=== PATIENT | female | born 1990 | race Caucasian/White ===

== ENCOUNTER 2016-11-01 10:43 | Emergency (ER) | payer BC, MEDICAID, OTHER, SELFPAY ==
[~2016-11-01 10:43] MED LIST: CYCL10TA PO; MOBI15TA PO; NEUR300C PO; ZOLO50TA PO
[2016-11-01 11:28] LABS: MEAN CORPUSCULAR HGB CONC 33.9 g/dl (32.0-36.5); MEAN CORPUSCULAR VOLUME 85.7 fl (80.0-96.0); RED CELL DISTRIBUTION WIDTH 12.7 % (11.5-14.5); WHITE BLOOD COUNT 12.3 K/mm3 (4.0-10.0)
[2016-11-01 11:50] LABS: ALBUMIN 3.2 GM/DL (3.2-5.2); ALBUMIN/GLOBULIN RATIO 0.73 (1.00-1.93); ALKALINE PHOSPHATASE 133 U/L (45-117); ALT/SGPT 22 U/L (12-78); ANION GAP 8 MEQ/L (8-16); AST/SGOT 17 U/L (15-37); BILIRUBIN,TOTAL 0.2 MG/DL (0.2-1.0); BLOOD UREA NITROGEN 13 MG/DL (7-18); CALCIUM LEVEL 8.4 MG/DL (8.5-10.1); CARBON DIOXIDE LEVEL 26 MEQ/L (21-32); CHLORIDE LEVEL 108 MEQ/L (98-107); CREATININE FOR GFR 0.75 MG/DL (0.55-1.02); GLOMERULAR FILTRATION RATE > 60.0 (>60); GLUCOSE, FASTING 91 MG/DL (70-105); POTASSIUM SERUM 3.8 MEQ/L (3.5-5.1); SODIUM LEVEL 142 MEQ/L (136-145); TOTAL PROTEIN 7.6 GM/DL (6.4-8.2)
--- NOTE | 2016-11-01 13:50 | EDDOCDS ---
Nurse's Notes [facility] Name: Marianela Bourgeois Age: 26 yrs Sex: Female : 1990 Arrival Date: 11/01/2016 Time: 10:43 Bed I2 / M2 Private MD: Kelsea Florentino M. Diagnosis: Irregular menstruation, unspecified Presentation: 11/01 10:52 Presenting complaint: Patient states: vaginal bleeding/spotting for over 1 week. Had kr3 regular menses 10/13/16. Reports has Nuvaring and usually does not have vaginal bleeding like this. Reports had vaginal discharge and was started on med for yeast infection 10/29. was not evaluated but treated via phone. Risk factors: The patient reports no loss of conciousness prior to arrival. This patient has not had a hysterectomy. This patient has not begun menopause. Adult Sepsis Screening: The patient does not have new or worsening altered mentation. Patient's respiratory rate is less than 22. Systolic blood pressure is greater than 100. Patient has a qSOFA score of 0- Negative Sepsis Screen. Suicide/Homicide risk assessment- the patient denies having any suicidal and/or homicidal ideations and does not present with any other emotional, behavioral or mental health complaints. Status: Patient is not a printing services coordinator or dependent. Transition of care: patient was not received from another setting of care. 10:52 Acuity: MIKEY Level 3 kr3 10:52 Method Of Arrival: Walkin/Carried/Asstd kr3 Triage Assessment: 10:56 General: Appears in no apparent distress, comfortable, Behavior is appropriate for age, kr3 cooperative. Pain: Denies pain. HIV screening NA for this visit Offered previously. Respiratory: Respiratory effort is even, unlabored. : Reports vaginal bleeding that is spotty. Derm: Skin is normal. 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 Zoloft 50 mg Oral tab 1 tab nightly 2. yeast infection med used vaginally nightly started 10/29/16 - PMHx: Depression; - PSHx: none; - Social history: Smoking status: Patient states was never smoker of tobacco. No barriers to communication noted, The patient speaks fluent Yi, Speaks appropriately for age. - Family history: Not pertinent. - : The pt / caregiver states he / she is not on anticoagulants. Home medication list is obtained from the patient. - Exposure Risk Screening:: None identified. Screenin:27 Screening information is obtained from the patient. Fall risk: No risks identified. srm Assistance ADL's: requires no assistance with activities of daily living. Abuse/DV Screen: The patient / caregiver reports he/she is: not in a situation that causes fear, pain or injury. Nutritional screening: No deficits noted. Advance Directives: There is no active DNR order. home support is adequate. Assessment: 11:27 General: Appears in no apparent distress, Behavior is appropriate for age, cooperative. srm Neurological: No deficits noted. EENT: No deficits noted. Cardiovascular: No deficits noted. Respiratory: Airway is patent Respiratory effort is even, unlabored, Breath sounds are clear bilaterally. GI: Abdomen is non- distended obese, Bowel sounds present X 4 quads. Abd is soft and non tender X 4 quads. : Reports vaginal bleeding that is black in color. 12:21 General: Appears in no apparent distress, comfortable, Behavior is appropriate for age, dsf cooperative. Pain: Denies pain. Neurological: Level of Consciousness is awake, alert. Cardiovascular: No deficits noted. Respiratory: No deficits noted. Derm: Skin is pink, warm & dry. 13:48 Adult Sepsis Screening: The patient does not have new or worsening altered mentation. dsf Patient's respiratory rate is less than 22. Systolic blood pressure is greater than 100. Patient has a qSOFA score of 0- Negative Sepsis Screen. General: Appears in no apparent distress, comfortable, Behavior is appropriate for age, cooperative. Pain: Denies pain. Neurological: Level of Consciousness is awake, alert. Cardiovascular: Capillary refill < 3 seconds. Respiratory: Airway is patent Respiratory effort is even, unlabored, Respiratory pattern is regular, symmetrical. Derm: Skin is pink, warm & dry. Vital Signs: 10:46 BP 133 / 84 RA Sitting (auto/reg); Pulse 100 RA; Resp 18 S; Temp 98.81(O); Pulse Ox 97% mt4 on R/A; Weight 104.33 kg (R); Height 5 ft. 6 in. (167.64 cm) (R); 13:31 BP 119 / 70; Pulse 104; Resp 18; Temp 97.4; Pulse Ox 98% ; Pain 0/10; jam1 10:46 Body Mass Index 37.12 (104.33 kg, 167.64 cm) mt4 Vitals: 10:46 Log In Time: November 01, 2016 at 10:43. mt4 ED Course: 10:45 Patient visited by Veronica Sears. mt4 10:45 Patient moved to Waiting mt4 10:46 Kelsea Florentino is Private Physician. mt4 10:50 Patient moved to Pre RCE mt4 10:54 Triage Initiated kr3 10:57 Patient moved to Triage 3 kr3 10:58 Ingr[facility] ef1 10:58 Ben Pham MD is Attending Physician. ef1 10:58 Patient visited by Ingris Davalos PA-C. ef1 11:16 Patient moved to I2 / M2 jf3 11:19 Patient visited by Judy Quezada. sew 11:19 Urinalysis Sent. sew 11:19 Urine Culture Sent. sew 11:19 Urine collected. Clean catch specimen. Urine specimen sent to lab. sew 11:23 Complete Comphrensive Metabolic Sent. srm 11:24 Patient visited by Judy Quezada. sew 11:24 Patient visited by Tish James, CORNEL. srm 11:24 The patient / caregiver is instructed regarding the plan of care and ED course. Patient srm has correct armband on for positive identification. Placed in gown. Bed in low position. 11:24 Inserted saline lock: 20 gauge in right antecubital area and blood collected. srm 11:24 Complete Blood Count Sent. srm 11:24 Type & Screen Sent. srm 11:28 Patient visited by Tish James, CORNEL. srm 12:04 Patient moved to Ultrasound sm5 12:20 Patient moved to I2 / M2 dsf 12:21 Patient visited by Aziza Lynch,RN. dsf 12:29 Patient has correct armband on for positive identification. Bed in low position. Call jam1 light in reach. Side rails up X 1. Door closed. 12:32 [facility] Payment Agreement was scanned into [employer]LO[employer] and attached to record. jls1 13:02 Patient visited by Ingris Davalos PA-C. ef1 13:39 Patient visited by Ingris Davalos PA-C. ef1 13:41 Patient visited by Ingris Davalos PA-C. ef1 13:43 Your Scarifier Operator is Referral Physician. ef1 13:43 Kelsea Florentino is Referral Physician. ef1 13:48 Discontinued IV lock intact, bleeding controlled, pressure dressing applied, No srm redness/swelling at site. 13:48 No procedures done that require assistance. dsf Administered Medications: 11:27 Drug: NS 0.9% 1000 ml [sodium chloride 0.9 % intravenous solution] Route: IV; Rate: srm bolus; Site: right antecubital; 13:48 Follow up: IV Status: Completed infusion srm Point of Care Testing: Urine : 11:24 hCG Reading: Negative; Control Reading: Positive; sew Ranges: Intake: 13:48 IV: 1000.00ml (NS); Total: 1000.00ml. srm Order Results: Lab Order: Complete Blood Count; SPEC'M 11/01/16 11:21 Test: WHITE BLOOD COUNT; Value: 12.3; Range: 4.0-10.0; Abnormal: Above high normal; Units: K/mm3; Status: F Test: RED BLOOD COUNT; Value: 4.69; Range: 4.00-5.40; Units: M/mm3; Status: F Test: HEMOGLOBIN; Value: 13.6; Range: 12.0-16.0; Units: g/dl; Status: F Test: HEMATOCRIT; Value: 40.2; Range: 36.0-47.0; Units: %; Status: F Test: MEAN CORPUSCULAR VOLUME; Value: 85.7; Range: 80.0-96.0; Units: fl; Status: F Test: MEAN CORPUSCULAR HEMOGLOBIN; Value: 29.0; Range: 27.0-33.0; Units: pg; Status: F Test: MEAN CORPUSCULAR HGB CONC; Value: 33.9; Range: 32.0-36.5; Units: g/dl; Status: F Test: RED CELL DISTRIBUTION WIDTH; Value: 12.7; Range: 11.5-14.5; Units: %; Status: F Test: PLATELET COUNT, AUTOMATED; Value: 223; Range: 150-450; Units: k/mm3; Status: F Lab Order: Type & Screen; SPEC'11/01/16 11:21 Test: BLOOD TYPE; Value: O POS; Status: F Test: AB SCREEN (INDIRECT TERRY)GEL; Value: NEGATIVE; Status: F Lab Order: Urinalysis; SPEC'M 11/01/16 11:16 Test: APPEARANCE, URINE; Value: HAZY; Range: CLEAR; Status: F Test: COLOR, URINE; Value: YELLOW; Range: YELLOW; Status: F Test: PH,URINE; Value: 5.0; Range: 5.0-9.0; Units: UNITS; Status: F Test: SPECIFIC GRAVITY URINE AUTO; Value: 1.032; Range: 1.002-1.035; Status: F Test: PROTEIN, URINE AUTO; Value: 1+; Range: NEGATIVE; Abnormal: Above high normal; Units: mg/dL; Status: F Test: GLUCOSE, URINE (UA) AUTO; Value: NEGATIVE; Range: NEGATIVE; Units: mg/dL; Status: F Test: KETONE, URINE AUTO; Value: TRACE; Range: NEGATIVE; Abnormal: Above high normal; Units: mg/dL; Status: F Test: UROBILINOGEN, URINE AUTO; Value: 0.2; Range: 0.0-2.0; Units: mg/dL; Status: F Test: BILIRUBIN, URINE AUTO; Value: NEGATIVE; Range: NEGATIVE; Status: F Test: NITRITE, URINE AUTO; Value: NEGATIVE; Range: NEGATIVE; Status: F Test: LEUKOCYTE ESTERASE, URINE AUTO; Value: NEGATIVE; Range: NEGATIVE; Status: F Test: BLOOD, URINE BLOOD; Value: 3+; Range: NEGATIVE; Abnormal: Above high normal; Status: F Test: WBC, URINE AUTO; Value: 2; Range: 0-3; Units: /HPF; Status: F Test: RBC, URINE AUTO; Value: 2; Range: 0-3; Units: /HPF; Status: F Test: BACTERIA, URINE AUTO; Value: NEGATIVE; Range: NEGATIVE; Status: F Test: SQUAMOUS EPITHELIAL CELL UR AU; Value: 3; Range: 0-6; Units: /HPF; Status: F Test: MUCUS, URINE; Value: LARGE; Range: NEGATIVE; Status: F Test: HYALINE CAST, URINE AUTO; Value: 0; Range: 0-1; Units: /LPF; Status: F Lab Order: Complete Comphrensive Metabolic; SPEC'M 11/01/16 11:21 Test: GLUCOSE, FASTING; Value: 91; Range: 70-105; Units: MG/DL; Status: F Test: BLOOD UREA NITROGEN; Value: 13; Range: 7-18; Units: MG/DL; Status: F Test: CREATININE FOR GFR; Value: 0.75; Range: 0.55-1.02; Units: MG/DL; Status: F Test: GLOMERULAR FILTRATION RATE; Value: > 60.0; Range: >60; Status: F Test: SODIUM LEVEL; Value: 142; Range: 136-145; Units: MEQ/L; Status: F Test: POTASSIUM SERUM; Value: 3.8; Range: 3.5-5.1; Units: MEQ/L; Status: F Test: CHLORIDE LEVEL; Value: 108; Range: 98-107; Abnormal: Above high normal; Units: MEQ/L; Status: F Test: CARBON DIOXIDE LEVEL; Value: 26; Range: 21-32; Units: MEQ/L; Status: F Test: ANION GAP; Value: 8; Range: 8-16; Units: MEQ/L; Status: F Test: CALCIUM LEVEL; Value: 8.4; Range: 8.5-10.1; Abnormal: Below low normal; Units: MG/DL; Status: F Test: AST/SGOT; Value: 17; Range: 15-37; Units: U/L; Status: F Test: ALT/SGPT; Value: 22; Range: 12-78; Units: U/L; Status: F Test: ALKALINE PHOSPHATASE; Value: 133; Range: 45-117; Abnormal: Above high normal; Units: U/L; Status: F Test: BILIRUBIN,TOTAL; Value: 0.2; Range: 0.2-1.0; Units: MG/DL; Status: F Test: TOTAL PROTEIN; Value: 7.6; Range: 6.4-8.2; Units: GM/DL; Status: F Test: ALBUMIN; Value: 3.2; Range: 3.2-5.2; Units: GM/DL; Status: F Test: ALBUMIN/GLOBULIN RATIO; Value: 0.73; Range: 1.00-1.93; Abnormal: Below low normal; Status: F Test Note: ; Units are mL/min/1.73 m2 Chronic Kidney Disease Staging per NKF: Stage I & II GFR >=60 Normal to Mildly Decreased Stage III GFR 30-59 Moderately Decreased Stage IV GFR 15-29 Severely Decreased Stage V GFR <15 Very Little GFR Left ESRD GFR <15 on MEAT SAL[employer]ORAGE MANAGER Outcome: 13:43 Discharge ordered by Provider. ef1 13:48 Discharge Assessment: Patient awake, alert and oriented x 3. No cognitive and/or dsf functional deficits noted. Patient verbalized understanding of disposition instructions. patient administered narcotics - no. The following High Risk Discharge criteria are identified: None. Discharged to home ambulatory. Condition: stable. Discharge instructions given to patient, Instructed on discharge instructions, follow up and referral plans. medication usage, Demonstrated understanding of instructions, medications, Pt was receptive of discharge instructions/ teaching. Prescriptions given X 2. Ultrasound Study completed. Property sent home with patient. 13:49 Patient left the ED. dsf Signatures: Tish James, RN RN srm Jeanie Gross, HUMBERTO VEIN ACCESS TECHNICIAN jam1 Erin Conroy 5 Ani Mora RN RN kr3 Veronica Sears co4 Ingris Davalos, PA-C PA-C ef1 Aziza LynchRN RN dsf Judy Quezada Jennifer jls1 Yomi White,RN RN jf3 Corrections: (The following items were deleted from the chart) 10:57 10:52 Presenting complaint: Patient states: vaginal bleeding/spotting for over 1 week. kr3 Had regular menses 10/13/16. Reports has Nuvaring and usually does not have vaginal bleeding like this kr3 MTDD
--- NOTE | 2016-11-01 13:50 | EDDOCDS ---
[facility] Name: Marianela Bourgeois Age: 26 yrs Sex: Female : 1990 Arrival Date: 11/01/2016 Time: 10:43 Bed I2 / M2 Private MD: Kelsea Florentino M. Disposition: 11/01/16 13:43 Discharged to Home/Self Care. Impression: Irregular menstruation, unspecified. - Condition is Stable. - Discharge Instructions: Abnormal Uterine Bleeding. - Prescriptions for Naprosyn 500 mg Oral Tablet - take 1 tablet by ORAL route 2 times per day take with food; 30 tablet. ZOFRAN ODT 4 mg - dissolve 1 tablet by ORAL route 4 times per day As needed do not chew, do not swallow whole; 10 tablet. - Medication Reconciliation, Local Pharmacy Hours form. 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 Follow up: Emergency Department; Reason: Worsening of conditions. Follow up: Kelsea Florentino; When: 1 - 2 days; Reason: Recheck today's complaints, Continuance of care. - Problem is new. - Symptoms have improved. Historical: - Allergies: Codeine Sulfate; - Home Meds: 1. Zoloft 50 mg Oral tab 1 tab nightly 2. yeast infection med used vaginally nightly started 10/29/16 - PMHx: Depression; - PSHx: none; - Social history: Smoking status: Patient states was never smoker of tobacco. No barriers to communication noted, The patient speaks fluent [place], Speaks appropriately for age. - Family history: Not pertinent. - : The pt / caregiver states he / she is not on anticoagulants. Home medication list is obtained from the patient. - Exposure Risk Screening:: None identified. RADIOCHEMICAL TECHNICIAN: 11/01 10:56 LMP 10/13/2016 kr3 Vital Signs: 10:46 BP 133 / 84 RA Sitting (auto/reg); Pulse 100 RA; Resp 18 S; Temp 98.81(O); Pulse Ox 97% mt4 on R/A; Weight 104.33 kg / 230.01 lbs (R); Height 5 ft. 6 in. (167.64 cm) (R); 13:31 BP 119 / 70; Pulse 104; Resp 18; Temp 97.4; Pulse Ox 98% ; Pain 0/10; jam1 10:46 Body Mass Index 37.12 (104.33 kg, 167.64 cm) mt4 MDM: 11:05 IV Saline Lock ordered. ef1 11:05 Undress patient appropriately for examination ordered. ef1 11:05 NS 0.9% 1000 ml IV at bolus once ordered. ef1 11:05 UCG by Nursing ordered. ef1 11:06 Complete Blood Count Ordered. EDMS 11:06 Urinalysis Ordered. EDMS 11:06 Complete Comphrensive Metabolic Ordered. EDMS 11:06 Urine Culture Ordered. EDMS 11:06 -US Pelvic Non-Ob Complete Ordered. EDMS 11:06 DUPLEX SCAN LIMITED (DOPPLER)+US Ordered. EDMS 11:07 Type & Screen Ordered. EDMS 12:04 Transvaginal NON- US Ordered. EDMS 12:06 Complete Blood Count Reviewed. ef1 12:06 Urinalysis Reviewed. ef1 12:06 Complete Comphrensive Metabolic Reviewed. ef1 12:06 Type & Screen Reviewed. ef1 12:20 Type & Screen Reviewed. ef1 12:31 Financial registration complete. jls1 12:32 [facility] Payment Agreement was scanned into eegoes and attached to record. [facility] Point of Care Testing: Urine : 11:24 hCG Reading: Negative; Control Reading: Positive; sew Ranges: Administered Medications: 11:27 Drug: NS 0.9% 1000 ml [sodium chloride 0.9 % intravenous solution] Route: IV; Rate: srm bolus; Site: right antecubital; 13:48 Follow up: IV Status: Completed infusion srm Signatures: Dispatcher [employer] EDMS Tish James, RN RN Ani LewisRN RN rossy3 Ingris Davalos, PA-C PA-C ef1 Aziza Lynch,RN RN Susi Campo [facility] The chart was reviewed and I authenticate all verbal orders and agree with the evaluation and treatment provided.Attachments: 12:32 [facility] Payment Agreement jl MTDD
--- NOTE | 2016-11-01 14:00 | REP ---
Pelvic sonography: History: Abnormal vaginal bleeding. Adnexal pain. Question torsion. Findings: Transabdominal and transvaginal scanning are performed. Uterine dimensions are normal at 6.7 x 3.0 x 3.8 cm. Endometrial echo is 0.4 cm thick and centrally placed. A Nabothian cyst is seen in the cervix. No free fluid is seen. The right ovary has a normal appearance measuring 2.1 x 1.4 x 2.0 cm. Its Doppler resistive index is normal at 0.55. The left ovary has a normal appearance with dimensions of 1.6 x 1.5 x 1.8 cm. Its Doppler resistive index is normal as 0.49. Impression: Normal pelvic sonography. Normal Doppler flow to morphologically normal bilateral ovaries. Signed by Shoaib Keenan MD 11/01/2016 02:39 P
--- NOTE | 2016-11-03 14:50 | EDDOCDS ---
Nurse's Notes [facility] Name: Marianela Bourgeois Age: 26 yrs Sex: Female : 1990 Arrival Date: 11/01/2016 Time: 10:43 Bed I2 / M2 Private MD: Kelsea Florentino M. Diagnosis: Irregular menstruation, unspecified Presentation: 11/01 10:52 Presenting complaint: Patient states: vaginal bleeding/spotting for over 1 week. Had kr3 regular menses 10/13/16. Reports has Nuvaring and usually does not have vaginal bleeding like this. Reports had vaginal discharge and was started on med for yeast infection 10/29. was not evaluated but treated via phone. Risk factors: The patient reports no loss of conciousness prior to arrival. This patient has not had a hysterectomy. This patient has not begun menopause. Adult Sepsis Screening: The patient does not have new or worsening altered mentation. Patient's respiratory rate is less than 22. Systolic blood pressure is greater than 100. Patient has a qSOFA score of 0- Negative Sepsis Screen. Suicide/Homicide risk assessment- the patient denies having any suicidal and/or homicidal ideations and does not present with any other emotional, behavioral or mental health complaints. Status: Patient is not a rehab services aide or dependent. Transition of care: patient was not received from another setting of care. 10:52 Acuity: MIKEY Level 3 kr3 10:52 Method Of Arrival: Walkin/Carried/Asstd kr3 Triage Assessment: 10:56 General: Appears in no apparent distress, comfortable, Behavior is appropriate for age, kr3 cooperative. Pain: Denies pain. HIV screening NA for this visit Offered previously. Respiratory: Respiratory effort is even, unlabored. : Reports vaginal bleeding that is spotty. Derm: Skin is normal. MLT: 10:56 LMP 10/13/2016 kr3 Historical: - Allergies: Codeine Sulfate; - Home Meds: 1. Zoloft 50 mg Oral tab 1 tab nightly 2. yeast infection med used vaginally nightly started 10/29/16 - PMHx: Depression; - PSHx: none; - Social history: Smoking status: Patient states was never smoker of tobacco. No barriers to communication noted, The patient speaks fluent Luxembourgish, Speaks appropriately for age. - Family history: Not pertinent. - : The pt / caregiver states he / she is not on anticoagulants. Home medication list is obtained from the patient. - Exposure Risk Screening:: None identified. Screenin:27 Screening information is obtained from the patient. Fall risk: No risks identified. srm Assistance ADL's: requires no assistance with activities of daily living. Abuse/DV Screen: The patient / caregiver reports he/she is: not in a situation that causes fear, pain or injury. Nutritional screening: No deficits noted. Advance Directives: There is no active DNR order. home support is adequate. Assessment: 11:27 General: Appears in no apparent distress, Behavior is appropriate for age, cooperative. srm Neurological: No deficits noted. EENT: No deficits noted. Cardiovascular: No deficits noted. Respiratory: Airway is patent Respiratory effort is even, unlabored, Breath sounds are clear bilaterally. GI: Abdomen is non- distended obese, Bowel sounds present X 4 quads. Abd is soft and non tender X 4 quads. : Reports vaginal bleeding that is black in color. 12:21 General: Appears in no apparent distress, comfortable, Behavior is appropriate for age, dsf cooperative. Pain: Denies pain. Neurological: Level of Consciousness is awake, alert. Cardiovascular: No deficits noted. Respiratory: No deficits noted. Derm: Skin is pink, warm & dry. 13:48 Adult Sepsis Screening: The patient does not have new or worsening altered mentation. dsf Patient's respiratory rate is less than 22. Systolic blood pressure is greater than 100. Patient has a qSOFA score of 0- Negative Sepsis Screen. General: Appears in no apparent distress, comfortable, Behavior is appropriate for age, cooperative. Pain: Denies pain. Neurological: Level of Consciousness is awake, alert. Cardiovascular: Capillary refill < 3 seconds. Respiratory: Airway is patent Respiratory effort is even, unlabored, Respiratory pattern is regular, symmetrical. Derm: Skin is pink, warm & dry. Vital Signs: 10:46 BP 133 / 84 RA Sitting (auto/reg); Pulse 100 RA; Resp 18 S; Temp 98.81(O); Pulse Ox 97% mt4 on R/A; Weight 104.33 kg (R); Height 5 ft. 6 in. (167.64 cm) (R); 13:31 BP 119 / 70; Pulse 104; Resp 18; Temp 97.4; Pulse Ox 98% ; Pain 0/10; jam1 10:46 Body Mass Index 37.12 (104.33 kg, 167.64 cm) mt4 Vitals: 10:46 Log In Time: November 01, 2016 at 10:43. mt4 ED Course: 10:45 Patient visited by Veronica Sears. mt4 10:45 Patient moved to Waiting mt4 10:46 Kelsea Florentino is Private Physician. mt4 10:50 Patient moved to Pre RCE mt4 10:54 Triage Initiated kr3 10:57 Patient moved to Triage 3 kr3 10:58 Ingr[facility]. ef1 10:58 Ben Pham MD is Attending Physician. ef1 10:58 Patient visited by Ingris Davalos PA-C. ef1 11:16 Patient moved to I2 / M2 jf3 11:19 Patient visited by Judy Quezada. sew 11:19 Urinalysis Sent. sew 11:19 Urine Culture Sent. sew 11:19 Urine collected. Clean catch specimen. Urine specimen sent to lab. sew 11:23 Complete Comphrensive Metabolic Sent. srm 11:24 Patient visited by Judy Quezada. sew 11:24 Patient visited by Tish James, CORNEL. srm 11:24 The patient / caregiver is instructed regarding the plan of care and ED course. Patient srm has correct armband on for positive identification. Placed in gown. Bed in low position. 11:24 Inserted saline lock: 20 gauge in right antecubital area and blood collected. srm 11:24 Complete Blood Count Sent. srm 11:24 Type & Screen Sent. srm 11:28 Patient visited by Tish James, CORNEL. srm 12:04 Patient moved to Ultrasound sm5 12:20 Patient moved to I2 / M2 dsf 12:21 Patient visited by Aziza Lynch,RN. dsf 12:29 Patient has correct armband on for positive identification. Bed in low position. Call jam1 light in reach. Side rails up X 1. Door closed. 12:32 [facility] Payment Agreement was scanned into [employer] and attached to record. jls1 13:02 Patient visited by Ingris Davalos PA-C. ef1 13:39 Patient visited by Ingris Davalos PA-C. ef1 13:41 Patient visited by Ingris Davalos PA-C. ef1 13:43 Your Case Liner is Referral Physician. ef1 13:43 Kelsea Florentino is Referral Physician. ef1 13:48 Discontinued IV lock intact, bleeding controlled, pressure dressing applied, No srm redness/swelling at site. 13:48 No procedures done that require assistance. dsf 14:33 T-Sheet-- Draft Copy was scanned into [employer]elt and attached to record. gb 14:33 Radiology Report was scanned into [employer]elt and attached to record. gb 14:34 -US Pelvic Non-Ob Complete Returned. EDMS 14:34 DUPLEX SCAN LIMITED (DOPPLER)+US Returned. EDMS 14:34 Transvaginal NON- US Returned. EDMS Administered Medications: 11:27 Drug: NS 0.9% 1000 ml [sodium chloride 0.9 % intravenous solution] Route: IV; Rate: srm bolus; Site: right antecubital; 13:48 Follow up: IV Status: Completed infusion srm Point of Care Testing: Urine : 11:24 hCG Reading: Negative; Control Reading: Positive; sew Ranges: Intake: 13:48 IV: 1000.00ml (NS); Total: 1000.00ml. srm Order Results: Lab Order: Complete Blood Count; SPEC'M 11/01/16 11:21 Test: WHITE BLOOD COUNT; Value: 12.3; Range: 4.0-10.0; Abnormal: Above high normal; Units: K/mm3; Status: F Test: RED BLOOD COUNT; Value: 4.69; Range: 4.00-5.40; Units: M/mm3; Status: F Test: HEMOGLOBIN; Value: 13.6; Range: 12.0-16.0; Units: g/dl; Status: F Test: HEMATOCRIT; Value: 40.2; Range: 36.0-47.0; Units: %; Status: F Test: MEAN CORPUSCULAR VOLUME; Value: 85.7; Range: 80.0-96.0; Units: fl; Status: F Test: MEAN CORPUSCULAR HEMOGLOBIN; Value: 29.0; Range: 27.0-33.0; Units: pg; Status: F Test: MEAN CORPUSCULAR HGB CONC; Value: 33.9; Range: 32.0-36.5; Units: g/dl; Status: F Test: RED CELL DISTRIBUTION WIDTH; Value: 12.7; Range: 11.5-14.5; Units: %; Status: F Test: PLATELET COUNT, AUTOMATED; Value: 223; Range: 150-450; Units: k/mm3; Status: F Lab Order: Type & Screen; [facility] 11/01/16 11:21 Test: BLOOD TYPE; Value: O POS; Status: F Test: AB SCREEN (INDIRECT TERRY)GEL; Value: NEGATIVE; Status: F Lab Order: Urinalysis; [facility] 11/01/16 11:16 Test: APPEARANCE, URINE; Value: HAZY; Range: CLEAR; Status: F Test: COLOR, URINE; Value: YELLOW; Range: YELLOW; Status: F Test: PH,URINE; Value: 5.0; Range: 5.0-9.0; Units: UNITS; Status: F Test: SPECIFIC GRAVITY URINE AUTO; Value: 1.032; Range: 1.002-1.035; Status: F Test: PROTEIN, URINE AUTO; Value: 1+; Range: NEGATIVE; Abnormal: Above high normal; Units: mg/dL; Status: F Test: GLUCOSE, URINE (UA) AUTO; Value: NEGATIVE; Range: NEGATIVE; Units: mg/dL; Status: F Test: KETONE, URINE AUTO; Value: TRACE; Range: NEGATIVE; Abnormal: Above high normal; Units: mg/dL; Status: F Test: UROBILINOGEN, URINE AUTO; Value: 0.2; Range: 0.0-2.0; Units: mg/dL; Status: F Test: BILIRUBIN, URINE AUTO; Value: NEGATIVE; Range: NEGATIVE; Status: F Test: NITRITE, URINE AUTO; Value: NEGATIVE; Range: NEGATIVE; Status: F Test: LEUKOCYTE ESTERASE, URINE AUTO; Value: NEGATIVE; Range: NEGATIVE; Status: F Test: BLOOD, URINE BLOOD; Value: 3+; Range: NEGATIVE; Abnormal: Above high normal; Status: F Test: WBC, URINE AUTO; Value: 2; Range: 0-3; Units: /HPF; Status: F Test: RBC, URINE AUTO; Value: 2; Range: 0-3; Units: /HPF; Status: F Test: BACTERIA, URINE AUTO; Value: NEGATIVE; Range: NEGATIVE; Status: F Test: SQUAMOUS EPITHELIAL CELL UR AU; Value: 3; Range: 0-6; Units: /HPF; Status: F Test: MUCUS, URINE; Value: LARGE; Range: NEGATIVE; Status: F Test: HYALINE CAST, URINE AUTO; Value: 0; Range: 0-1; Units: /LPF; Status: F Lab Order: Urine Culture; SPEC'M 11/01/16 11:16 Test: URINE CULTURE; Value: URINE CULTURE RESULT NO GROWTH; Status: F Lab Order: Complete Comphrensive Metabolic; SPEC'M 11/01/16 11:21 Test: GLUCOSE, FASTING; Value: 91; Range: 70-105; Units: MG/DL; Status: F Test: BLOOD UREA NITROGEN; Value: 13; Range: 7-18; Units: MG/DL; Status: F Test: CREATININE FOR GFR; Value: 0.75; Range: 0.55-1.02; Units: MG/DL; Status: F Test: GLOMERULAR FILTRATION RATE; Value: > 60.0; Range: >60; Status: F Test: SODIUM LEVEL; Value: 142; Range: 136-145; Units: MEQ/L; Status: F Test: POTASSIUM SERUM; Value: 3.8; Range: 3.5-5.1; Units: MEQ/L; Status: F Test: CHLORIDE LEVEL; Value: 108; Range: 98-107; Abnormal: Above high normal; Units: MEQ/L; Status: F Test: CARBON DIOXIDE LEVEL; Value: 26; Range: 21-32; Units: MEQ/L; Status: F Test: ANION GAP; Value: 8; Range: 8-16; Units: MEQ/L; Status: F Test: CALCIUM LEVEL; Value: 8.4; Range: 8.5-10.1; Abnormal: Below low normal; Units: MG/DL; Status: F Test: AST/SGOT; Value: 17; Range: 15-37; Units: U/L; Status: F Test: ALT/SGPT; Value: 22; Range: 12-78; Units: U/L; Status: F Test: ALKALINE PHOSPHATASE; Value: 133; Range: 45-117; Abnormal: Above high normal; Units: U/L; Status: F Test: BILIRUBIN,TOTAL; Value: 0.2; Range: 0.2-1.0; Units: MG/DL; Status: F Test: TOTAL PROTEIN; Value: 7.6; Range: 6.4-8.2; Units: GM/DL; Status: F Test: ALBUMIN; Value: 3.2; Range: 3.2-5.2; Units: GM/DL; Status: F Test: ALBUMIN/GLOBULIN RATIO; Value: 0.73; Range: 1.00-1.93; Abnormal: Below low normal; Status: F Test Note: ; Units are mL/min/1.73 m2 Chronic Kidney Disease Staging per NKF: Stage I & II GFR >=60 Normal to Mildly Decreased Stage III GFR 30-59 Moderately Decreased Stage IV GFR 15-29 Severely Decreased Stage V GFR <15 Very Little GFR Left ESRD GFR <15 on PROJECT ENGINEER Radiology Order: -US Pelvic Non-Ob Complete Test: -US Pelvic Non-Ob Complete REASON FOR EXAMINATION: Adnexal Pain r/o Torsion; Pelvic sonography:; ; History: Abnormal vaginal bleeding. Adnexal pain. Question torsion.; ; Findings: Transabdominal and transvaginal scanning are performed. Uterine; dimensions are normal at 6.7 x 3.0 x 3.8 cm. Endometrial echo is 0.4 cm thick; and centrally placed. A Nabothian cyst is seen in the cervix. No free fluid is; seen.; ; The right ovary has a normal appearance measuring 2.1 x 1.4 x 2.0 cm. Its; Doppler resistive index is normal at 0.55. The left ovary has a normal; appearance with dimensions of 1.6 x 1.5 x 1.8 cm. Its Doppler resistive index is; normal as 0.49.; ; Impression:; ; Normal pelvic sonography. Normal Doppler flow to morphologically normal; bilateral ovaries.; ; ; Signed by; Shoaib Keenan MD 11/01/2016 02:39 P; Radiology Order: DUPLEX SCAN LIMITED (DOPPLER)+US Test: DUPLEX SCAN LIMITED (DOPPLER)+US REASON FOR EXAMINATION: Adnexal Pain r/o Torsion; Pelvic sonography:; ; History: Abnormal vaginal bleeding. Adnexal pain. Question torsion.; ; Findings: Transabdominal and transvaginal scanning are performed. Uterine; dimensions are normal at 6.7 x 3.0 x 3.8 cm. Endometrial echo is 0.4 cm thick; and centrally placed. A Nabothian cyst is seen in the cervix. No free fluid is; seen.; ; The right ovary has a normal appearance measuring 2.1 x 1.4 x 2.0 cm. Its; Doppler resistive index is normal at 0.55. The left ovary has a normal; appearance with dimensions of 1.6 x 1.5 x 1.8 cm. Its Doppler resistive index is; normal as 0.49.; ; Impression:; ; Normal pelvic sonography. Normal Doppler flow to morphologically normal; bilateral ovaries.; ; ; Signed by; Shoaib Keenan MD 11/01/2016 02:39 P; Radiology Order: Transvaginal NON- US Test: Transvaginal NON- US REASON FOR EXAMINATION: EVAL UTERUS AND OVARIES; Pelvic sonography:; ; History: Abnormal vaginal bleeding. Adnexal pain. Question torsion.; ; Findings: Transabdominal and transvaginal scanning are performed. Uterine; dimensions are normal at 6.7 x 3.0 x 3.8 cm. Endometrial echo is 0.4 cm thick; and centrally placed. A Nabothian cyst is seen in the cervix. No free fluid is; seen.; ; The right ovary has a normal appearance measuring 2.1 x 1.4 x 2.0 cm. Its; Doppler resistive index is normal at 0.55. The left ovary has a normal; appearance with dimensions of 1.6 x 1.5 x 1.8 cm. Its Doppler resistive index is; normal as 0.49.; ; Impression:; ; Normal pelvic sonography. Normal Doppler flow to morphologically normal; bilateral ovaries.; ; ; Signed by; Shoaib Keenan MD 11/01/2016 02:39 P; Outcome: 13:43 Discharge ordered by Provider. ef1 13:48 Discharge Assessment: Patient awake, alert and oriented x 3. No cognitive and/or dsf functional deficits noted. Patient verbalized understanding of disposition instructions. patient administered narcotics - no. The following High Risk Discharge criteria are identified: None. Discharged to home ambulatory. Condition: stable. Discharge instructions given to patient, Instructed on discharge instructions, follow up and referral plans. medication usage, Demonstrated understanding of instructions, medications, Pt was receptive of discharge instructions/ teaching. Prescriptions given X 2. Ultrasound Study completed. Property sent home with patient. 13:49 Patient left the ED. dsf Signatures: Dispatcher [facility] EDIN Tish James RN RN Jeanie Hopper, PRIMING MIXTURE CARRIER PRIMING MIXTURE CARRIER jam1 Nubia Mendez, Reg Reg gb Marycarmen, Erin sm5 Ani Mora,RN RN kr3 Veronica Sears mt4 Ingris Davalos PA-C PAShannan ef1 Aziza Lynch,RN RN dsf Damien, Judy Dougherty, Susi jls1 Yomi White,RN RN jf3 Corrections: (The following items were deleted from the chart) 10:57 10:52 Presenting complaint: Patient states: vaginal bleeding/spotting for over 1 week. kr3 Had regular menses 10/13/16. Reports has Nuvaring and usually does not have vaginal bleeding like this kr3 Chart Complete MTDD
--- NOTE | 2016-11-03 14:50 | EDDOCDS ---
Physician Documentation [facility] Name: Marianela Bourgeois Age: 26 yrs Sex: Female : 1990 Arrival Date: 11/01/2016 Time: 10:43 Bed I2 / M2 Private MD: Kelsea Florentino M. Disposition: 11/01/16 13:43 Discharged to Home/Self Care. Impression: Irregular menstruation, unspecified. - Condition is Stable. - Discharge Instructions: Abnormal Uterine Bleeding. - Prescriptions for Naprosyn 500 mg Oral Tablet - take 1 tablet by ORAL route 2 times per day take with food; 30 tablet. ZOFRAN ODT 4 mg - dissolve 1 tablet by ORAL route 4 times per day As needed do not chew, do not swallow whole; 10 tablet. - Medication Reconciliation, Local Pharmacy Hours form. - Follow up: Your Lining Maker; When: Call to arrange an appointment; Reason: Further diagnostic work-up, Recheck today's complaints, Continuance of care. Follow up: Emergency Department; Reason: Worsening of conditions. Follow up: Kelsea Florentino; When: 1 - 2 days; Reason: Recheck today's complaints, Continuance of care. - Problem is new. - Symptoms have improved. Historical: - Allergies: Codeine Sulfate; - Home Meds: 1. Zoloft 50 mg Oral tab 1 tab nightly 2. yeast infection med used vaginally nightly started 10/29/16 - PMHx: Depression; - PSHx: none; - Social history: Smoking status: Patient states was never smoker of tobacco. No barriers to communication noted, The patient speaks fluent Kosovan, Speaks appropriately for age. - Family history: Not pertinent. - : The pt / caregiver states he / she is not on anticoagulants. Home medication list is obtained from the patient. - Exposure Risk Screening:: None identified. CLINIC ADMINISTRATOR: 11/01 10:56 LMP 10/13/2016 kr3 Vital Signs: 10:46 BP 133 / 84 RA Sitting (auto/reg); Pulse 100 RA; Resp 18 S; Temp 98.81(O); Pulse Ox 97% mt4 on R/A; Weight 104.33 kg / 230.01 lbs (R); Height 5 ft. 6 in. (167.64 cm) (R); 13:31 BP 119 / 70; Pulse 104; Resp 18; Temp 97.4; Pulse Ox 98% ; Pain 0/10; jam1 10:46 Body Mass Index 37.12 (104.33 kg, 167.64 cm) mt4 MDM: 11:05 IV Saline Lock ordered. ef1 11:05 Undress patient appropriately for examination ordered. ef1 11:05 NS 0.9% 1000 ml IV at bolus once ordered. ef1 11:05 UCG by Nursing ordered. ef1 11:06 Complete Blood Count Ordered. EDMS 11:06 Urinalysis Ordered. EDMS 11:06 Complete Comphrensive Metabolic Ordered. EDMS 11:06 Urine Culture Ordered. EDMS 11:06 -US Pelvic Non-Ob Complete Ordered. EDMS 11:06 DUPLEX SCAN LIMITED (DOPPLER)+US Ordered. EDMS 11:07 Type & Screen Ordered. EDMS 12:04 Transvaginal NON- US Ordered. EDMS 12:06 Complete Blood Count Reviewed. ef1 12:06 Urinalysis Reviewed. ef1 12:06 Complete Comphrensive Metabolic Reviewed. ef1 12:06 Type & Screen Reviewed. ef1 12:20 Type & Screen Reviewed. ef1 12:31 Financial registration complete. jls1 12:32 [facility] Payment Agreement was scanned into [employer] and attached to record. jls1 14:33 T-Sheet-- Draft Copy was scanned into [employer] and attached to record. gb 14:33 Radiology Report was scanned into [employer] and attached to record. Point of Care Testing: Urine : 11:24 hCG Reading: Negative; Control Reading: Positive; sew Ranges: Administered Medications: 11:27 Drug: NS 0.9% 1000 ml [sodium chloride 0.9 % intravenous solution] Route: IV; Rate: srm bolus; Site: right antecubital; 13:48 Follow up: IV Status: Completed infusion srm Signatures: Dispatcher [employer] EDMS Tish James RN RN srm Barnhardt, Gloria, Ani Finley RN RN kr3 Ingris Davalos, PA-C PA-C ef1 Aziza Lynch RN RN dsf Smith, Jennifer jls1 The chart was reviewed and I authenticate all verbal orders and agree with the evaluation and treatment provided.Attachments: 12:32 [facility] Payment Agreement jls1 14:33 T-Sheet-- Draft Copy gb Chart Complete MTDD
--- NOTE | 2016-11-03 14:50 | EDDOCDS ---
Physician Documentation [facility] Name: Marianela Bourgeois Age: 26 yrs Sex: Female : 1990 Arrival Date: 11/01/2016 Time: 10:43 Bed I2 / M2 Private MD: Kelsea Florentino M. Disposition: 11/01/16 13:43 Discharged to Home/Self Care. Impression: Irregular menstruation, unspecified. - Condition is Stable. - Discharge Instructions: Abnormal Uterine Bleeding. - Prescriptions for Naprosyn 500 mg Oral Tablet - take 1 tablet by ORAL route 2 times per day take with food; 30 tablet. ZOFRAN ODT 4 mg - dissolve 1 tablet by ORAL route 4 times per day As needed do not chew, do not swallow whole; 10 tablet. - Medication Reconciliation, Local Pharmacy Hours form. - Follow up: Your Radio Producer; When: Call to arrange an appointment; Reason: Further diagnostic work-up, Recheck today's complaints, Continuance of care. Follow up: Emergency Department; Reason: Worsening of conditions. Follow up: Kelsea Florentino; When: 1 - 2 days; Reason: Recheck today's complaints, Continuance of care. - Problem is new. - Symptoms have improved. Historical: - Allergies: Codeine Sulfate; - Home Meds: 1. Zoloft 50 mg Oral tab 1 tab nightly 2. yeast infection med used vaginally nightly started 10/29/16 - PMHx: Depression; - PSHx: none; - Social history: Smoking status: Patient states was never smoker of tobacco. No barriers to communication noted, The patient speaks fluent Cameroonian, Speaks appropriately for age. - Family history: Not pertinent. - : The pt / caregiver states he / she is not on anticoagulants. Home medication list is obtained from the patient. - Exposure Risk Screening:: None identified. AUDIT REVIEWER: 11/01 10:56 LMP 10/13/2016 kr3 Vital Signs: 10:46 BP 133 / 84 RA Sitting (auto/reg); Pulse 100 RA; Resp 18 S; Temp 98.81(O); Pulse Ox 97% mt4 on R/A; Weight 104.33 kg / 230.01 lbs (R); Height 5 ft. 6 in. (167.64 cm) (R); 13:31 BP 119 / 70; Pulse 104; Resp 18; Temp 97.4; Pulse Ox 98% ; Pain 0/10; jam1 10:46 Body Mass Index 37.12 (104.33 kg, 167.64 cm) mt4 MDM: 11:05 IV Saline Lock ordered. ef1 11:05 Undress patient appropriately for examination ordered. ef1 11:05 NS 0.9% 1000 ml IV at bolus once ordered. ef1 11:05 UCG by Nursing ordered. ef1 11:06 Complete Blood Count Ordered. EDMS 11:06 Urinalysis Ordered. EDMS 11:06 Complete Comphrensive Metabolic Ordered. EDMS 11:06 Urine Culture Ordered. EDMS 11:06 -US Pelvic Non-Ob Complete Ordered. EDMS 11:06 DUPLEX SCAN LIMITED (DOPPLER)+US Ordered. EDMS 11:07 Type & Screen Ordered. EDMS 12:04 Transvaginal NON- US Ordered. EDMS 12:06 Complete Blood Count Reviewed. ef1 12:06 Urinalysis Reviewed. ef1 12:06 Complete Comphrensive Metabolic Reviewed. ef1 12:06 Type & Screen Reviewed. ef1 12:20 Type & Screen Reviewed. ef1 12:31 Financial registration complete. jls1 12:32 [facility] Payment Agreement was scanned into [employer] and attached to record. jls1 14:33 T-Sheet-- Draft Copy was scanned into [employer] and attached to record. gb 14:33 Radiology Report was scanned into [employer] and attached to record. Point of Care Testing: Urine : 11:24 hCG Reading: Negative; Control Reading: Positive; sew Ranges: Administered Medications: 11:27 Drug: NS 0.9% 1000 ml [sodium chloride 0.9 % intravenous solution] Route: IV; Rate: srm bolus; Site: right antecubital; 13:48 Follow up: IV Status: Completed infusion srm Signatures: Dispatcher [employer] EDMS Tish James RN RN srm Barnhardt, Gloria, Ani Finley RN RN kr3 Ingris Davalos, PA-C PA-C ef1 Aziza Lynch RN RN dsf Smith, Jennifer jls1 The chart was reviewed and I authenticate all verbal orders and agree with the evaluation and treatment provided.Attachments: 12:32 [facility] Payment Agreement jls1 14:33 T-Sheet-- Draft Copy gb Chart Complete MTDD
== END 2016-11-01 13:49 | disposition home or self-care (01) ==
LOC: M ED 10:43
DX: N92.6 Irregular menstruation, unspecified (principal); F32.9 Major depressive disorder, single episode, unspecified; Z79.899 Other long term (current) drug therapy; Z88.5 Allergy status to narcotic agent

== ENCOUNTER 2017-10-03 10:27 | Emergency (ER) | payer OTHER, SELFPAY ==
[~2017-10-03] VITALS: Ht 167.6 cm; Wt 109.1 kg
--- NOTE | 2017-10-03 11:58 | REP ---
Clinical: Pain. Technique: AP, lateral, bilateral oblique, and coned-down views. Findings: Alignment and lordosis is maintained. The vertebral bodies including transverse process and spinous processes are intact and there is no evidence for acute fracture / compression injury or subluxation. Degenerative disc disease at the L5-S1 level includes endplate sclerosis, hypertrophic facet changes and disc space narrowing. Impression: Moderate degenerative disc disease at the L5-S1 level suggested. Signed by Alonzo Hadley MD 10/03/2017 11:50 A
[2017-10-03] MEDS ORDERED: NORCOTAB PO (12:18)
[2017-10-03 12:28] VITALS: BP 133/68
== END 2017-10-03 12:29 | disposition home or self-care (01) ==
LOC: M ED 10:27
DX: S30.0XXA Contusion of lower back and pelvis, initial encounter (principal); W00.0XXA Fall on same level due to ice and snow, initial encounter; Y92.89 Other specified places as the place of occurrence of the external cause; Y93.01 Activity, walking, marching and hiking; Y99.9 Unspecified external cause status

== ENCOUNTER 2017-10-15 06:27 | Emergency (ER) | payer OTHER ==
[2017-10-15] MEDS: TETRACAINE 0.5% OPHTH SOLN 4ML OS (07:15)
[2017-10-15] MEDS: FLUORESCEIN OPHTH 1 MG STRIP OS (07:15)
== END 2017-10-15 08:17 | disposition home or self-care (01) ==
LOC: M ED 06:27
DX: B30.9 Viral conjunctivitis, unspecified (principal); F33.9 Major depressive disorder, recurrent, unspecified; Z79.899 Other long term (current) drug therapy; Z88.5 Allergy status to narcotic agent
CPT/HCPCS: 99283

== ENCOUNTER 2017-10-17 13:03 | Emergency (ER) | payer OTHER | END 2017-10-17 14:00 | disposition home or self-care (01) | LOC: M ED 13:03 | DX: H10.9 Unspecified conjunctivitis (principal); J32.9 Chronic sinusitis, unspecified; F33.9 Major depressive disorder, recurrent, unspecified; Z79.899 Other long term (current) drug therapy; Z88.5 Allergy status to narcotic agent | CPT/HCPCS: 99282 ==

== ENCOUNTER 2022-04-16 15:34 | Emergency (ER) | payer MEDICAID, OTHER ==
[~2022-04-16] VITALS: Ht 167.6 cm; Wt 104.0 kg
[~2022-04-16 15:34] MED LIST changes: +AUGM875T28 PO; +CYCL-707 PO; -CYCL10TA PO; +HYDR-3715 PO; +IBUP80TA PO; +TOBR0.3S10 OP
[2022-04-16 16:26] VITALS: BP 127/85
[2022-04-16 16:46] LABS: BASO # 0.1 10^3/uL (0.0-0.2); BASO % 0.5 % (0.0-1.0); EOS # 0.1 10^3/uL (0.0-0.5); EOS % 0.8 % (0.0-3.0); HEMATOCRIT 42.2 % (36.0-47.0); HEMOGLOBIN 13.7 g/dl (12.0-15.5); LYMPH # 2.9 10^3/uL (1.5-5.0); MEAN CORPUSCULAR HEMOGLOBIN 28.6 pg (27.0-33.0); MEAN CORPUSCULAR HGB CONC 32.5 g/dl (32.0-36.5); MEAN CORPUSCULAR VOLUME 88.1 fl (80.0-96.0); MONO # 0.5 10^3/uL (0.0-0.8); MONO % 4.1 % (2.0-8.0); NEUTROPHILS % 71.2 % (36.0-66.0); PLATELET COUNT, AUTOMATED 241 10^3/uL (150-450); RED BLOOD COUNT 4.79 10^6/uL (4.00-5.40); WHITE BLOOD COUNT 12.6 10^3/uL (4.0-10.0)
[2022-04-16] MEDS ORDERED: CLOPIDOGREL 300 MG TAB (PLAVIX) PO STA (16:56)
[2022-04-16] MEDS ORDERED: ASPIRIN 81 MG CHEW TABLET PO ONE (17:00)
[2022-04-16 17:01] LABS: HCG, SERUM QUALITATIVE NEGATIVE (NEGATIVE)
[2022-04-16 17:04] LABS: CK-MB VALUE MASS 1.2 NG/ML (<3.6); CPK CREATINE PHOSPHOKINASE 139 U/L (26-192); MB/CK RELATIVE INDEX 0.86 (< OR =4)
[2022-04-16 17:05] LABS: BLOOD UREA NITROGEN 13 MG/DL (7-18); CALCIUM LEVEL 9.1 MG/DL (8.5-10.1); CARBON DIOXIDE LEVEL 28 MEQ/L (21-32); CHLORIDE LEVEL 106 MEQ/L (98-107); CREATININE FOR GFR 0.77 MG/DL (0.55-1.30); GLOMERULAR FILTRATION RATE > 60.0 (>60); GLUCOSE, FASTING 86 MG/DL (70-100); SODIUM LEVEL 139 MEQ/L (136-145)
[2022-04-16 17:15] LABS: INR 1.02; PARTIAL THROMBOPLASTIN TIME 32.3 SECONDS (25.9-37.0); PROTHROMBIN TIME 13.8 SECONDS (12.7-14.5)
[2022-04-16] MEDS ORDERED: NS 1,000 ML IV ONE (17:20)
[2022-04-16 17:32] LABS: RSV AMPLIFICATION NEGATIVE (NEGATIVE)
[2022-04-16 18:00] VITALS: BP 133/78
== END 2022-04-16 18:06 | disposition short-term general hospital (02) ==
LOC: M ED 15:34
DX: I63.9 Cerebral infarction, unspecified (principal); F32.A Depression, unspecified; M54.50 Low back pain, unspecified; Z88.6 Allergy status to analgesic agent

== ENCOUNTER → 2022-06-26 | Outpatient (CLI) | payer MEDICAID, OTHER ==
[2022-06-26 13:25] LABS: HEMATOCRIT 41.9 % (36.0-47.0); HEMOGLOBIN 13.6 g/dl (12.0-15.5); MEAN CORPUSCULAR HEMOGLOBIN 28.9 pg (27.0-33.0); MEAN CORPUSCULAR HGB CONC 32.5 g/dl (32.0-36.5); MEAN CORPUSCULAR VOLUME 89.1 fl (80.0-96.0); PLATELET COUNT, AUTOMATED 236 10^3/uL (150-450); WHITE BLOOD COUNT 10.9 10^3/uL (4.0-10.0)
[2022-06-26 13:26] LABS: URINE PREG TEST NEGATIVE (NEGATIVE)
[2022-06-26 14:04] LABS: ERYTHROCYTE SEDIMENTATION RATE 17 mm/hr (0-20)
[2022-06-26 14:25] LABS: ALBUMIN 3.6 GM/DL (3.2-5.2); ALT/SGPT 26 U/L (12-78); BILIRUBIN,TOTAL 0.3 MG/DL (0.2-1.0); BLOOD UREA NITROGEN 10 MG/DL (7-18); CALCIUM LEVEL 8.9 MG/DL (8.5-10.1); CARBON DIOXIDE LEVEL 28 MEQ/L (21-32); CHLORIDE LEVEL 107 MEQ/L (98-107); CHOLESTEROL LEVEL 133 MG/DL (<200); CHOLESTEROL RISK RATIO 2.891 (<5); FERRITIN 40 NG/ML (8-252); FREE T4 0.96 NG/DL (0.76-1.46); GLOMERULAR FILTRATION RATE > 60.0 (>60); GLUCOSE, FASTING 84 MG/DL (70-100); HDL CHOLESTEROL 46 MG/DL (>40); LDL CHOLESTEROL 62 MG/DL (<100); NON-HDL-C 87 MG/DL; POTASSIUM SERUM 4.6 MEQ/L (3.5-5.1); SODIUM LEVEL 138 MEQ/L (136-145); TOTAL PROTEIN 7.3 GM/DL (6.4-8.2); TRIGLYCERIDES LEVEL 124 MG/DL (<150)
[2022-06-26 14:36] LABS: HEMOGLOBIN A1c 5.3 %
[2022-06-26 15:07] LABS: TOTAL 25(OH) VITAMIN D 29.6 NG/ML (30.0-100.0)
[2022-06-26 15:47] LABS: HEPATITIS C VIRUS ABY INDEX < 0.0 INDEX (<0.8); HIV 1&2 SCREEN CENTAUR NEGATIVE (NEGATIVE)
== END ==
LOC: M PLALAB 10:30
PROVIDERS: ATTEND Family Medicine
DX: N92.0 Excessive and frequent menstruation with regular cycle (principal); R42 Dizziness and giddiness; R29.810 Facial weakness; R53.1 Weakness; R29.898 Other symptoms and signs involving the musculoskeletal system; R20.0 Anesthesia of skin; E55.9 Vitamin D deficiency, unspecified; E66.9 Obesity, unspecified; Z11.9 Encounter for screening for infectious and parasitic diseases, unspecified

== ENCOUNTER → 2022-07-17 | Outpatient (REF) | LOC: M EMP 14:36 | PROVIDERS: ATTEND Family Medicine | DX: Z20.822 Contact with and (suspected) exposure to COVID-19 (principal) ==

== ENCOUNTER → 2022-11-27 | Outpatient (REF) | payer OTHER | LOC: M LAB REF 17:18 | PROVIDERS: ATTEND Otolaryngology | DX: H60.92 Unspecified otitis externa, left ear (principal) ==

== ENCOUNTER → 2022-12-25 | Outpatient (REF) ==
[2022-12-25 11:27] LABS: RSV AMPLIFICATION NEGATIVE (NEGATIVE)
== END ==
LOC: M EMP 10:40
PROVIDERS: ATTEND Family Medicine
DX: Z11.59 Encounter for screening for other viral diseases (principal)

== ENCOUNTER → 2023-04-03 | Outpatient (REF) | payer OTHER ==
[2023-04-03 14:25] LABS: APPEARANCE, URINE CLEAR (CLEAR); BACTERIA, URINE AUTO NEGATIVE (NEGATIVE); BILIRUBIN, URINE AUTO NEGATIVE (NEGATIVE); BLOOD, URINE BLOOD 1+ (NEGATIVE); COLOR, URINE YELLOW (YELLOW); GLUCOSE, URINE (UA) AUTO NEGATIVE (NEGATIVE); KETONE, URINE AUTO NEGATIVE (NEGATIVE); LEUKOCYTE ESTERASE, URINE AUTO NEGATIVE (NEGATIVE); MUCUS, URINE SMALL (NEGATIVE); NITRITE, URINE AUTO NEGATIVE (NEGATIVE); PROTEIN, URINE AUTO NEGATIVE (NEGATIVE); RBC, URINE AUTO 0 /HPF (0-3); SPECIFIC GRAVITY URINE AUTO 1.021 (1.002-1.035); SQUAMOUS EPITHELIAL CELL UR AU 1 /HPF (0-6); UROBILINOGEN, URINE AUTO 0.2 mg/dL (0.0-2.0); WBC, URINE AUTO 1 /HPF (0-3)
[2023-04-03 15:21] LABS: HEPATITIS B SURFACE ANTIGEN NEGATIVE (NEGATIVE)
[2023-04-03 15:33] LABS: HIV 1&2 SCREEN NEGATIVE (NEGATIVE)
[2023-04-03 16:14] LABS: GC DNA AMPLIFICATION NEGATIVE (NEGATIVE)
== END ==
LOC: M SFHCPLAZ 12:55
PROVIDERS: ATTEND Family Medicine
DX: Z11.9 Encounter for screening for infectious and parasitic diseases, unspecified (principal); R10.2 Pelvic and perineal pain; R39.15 Urgency of urination

== ENCOUNTER → 2023-08-11 | Outpatient (REF) ==
[2023-08-11 12:46] LABS: RSV AMPLIFICATION NEGATIVE (NEGATIVE)
== END ==
LOC: M EMP 12:01
PROVIDERS: ATTEND Family Medicine
DX: Z11.52 Encounter for screening for COVID-19 (principal)

== ENCOUNTER 2023-08-24 18:10 | Emergency (ER) | payer OTHER ==
[~2023-08-24] VITALS: Ht 167.6 cm; Wt 103.9 kg
[2023-08-24] MEDS ORDERED: ETON1VAG (18:45)
[2023-08-24] MEDS ORDERED: VENL75CA47 (18:45)
[2023-08-24] MEDS ORDERED: NS 1,000 ML IV ONE ×2 (19:50→21:30)
[2023-08-24] MEDS ORDERED: ACETAMINOPHEN 500 MG TAB PO ONE (19:50)
[2023-08-24] MEDS ORDERED: IBUPROFEN 800 MG TAB PO ONE (19:50)
[2023-08-24 19:54] LABS: BASO % 0.2 % (0.0-1.0); EOS % 0.2 % (0.0-3.0); HEMATOCRIT 39.6 % (36.0-47.0); HEMOGLOBIN 13.4 g/dl (12.0-15.5); LYMPH % 11.5 % (24.0-44.0); MEAN CORPUSCULAR HEMOGLOBIN 28.8 pg (27.0-33.0); MEAN CORPUSCULAR HGB CONC 33.8 g/dl (32.0-36.5); MEAN CORPUSCULAR VOLUME 85.2 fl (80.0-96.0); MONO # 0.8 10^3/uL (0.0-0.8); MONO % 4.8 % (2.0-8.0); NEUTROPHILS # 14.2 10^3/uL (1.5-8.5); NEUTROPHILS % 82.7 % (36.0-66.0); PLATELET COUNT, AUTOMATED 192 10^3/uL (150-450); RED BLOOD COUNT 4.65 10^6/uL (4.00-5.40); WHITE BLOOD COUNT 17.2 10^3/uL (4.0-10.0)
[2023-08-24 20:30] LABS: INR 1.35; PROTHROMBIN TIME 16.2 SECONDS (12.5-14.5)
[2023-08-24 20:30] LABS: CK-MB VALUE MASS < 1.0 NG/ML (<3.6); HCG, SERUM QUALITATIVE NEGATIVE (NEGATIVE)
[2023-08-24 20:31] LABS: PARTIAL THROMBOPLASTIN TIME 33.9 SECONDS (24.8-34.2)
[2023-08-24 20:32] LABS: CPK CREATINE PHOSPHOKINASE 64 U/L (34-145); MB/CK RELATIVE INDEX 1.56 (< OR =4)
[2023-08-24 20:33] LABS: ALBUMIN 2.9 G/DL (3.2-5.2); ALKALINE PHOSPHATASE 100 U/L (46-116); ALT/SGPT 16 U/L (7.0-40); AST/SGOT 13 U/L (<34); BILIRUBIN,DIRECT 0.3 MG/DL (<0.4); BILIRUBIN,TOTAL 0.5 MG/DL (0.3-1.2); BLOOD UREA NITROGEN 11 MG/DL (9-23); CALCIUM LEVEL 8.2 MG/DL (8.5-10.1); CARBON DIOXIDE LEVEL 22 MMOL/L (20-31); CHLORIDE LEVEL 105 MMOL/L (98-107); GLOMERULAR FILTRATION RATE > 60.0 (>60); GLUCOSE, FASTING 98 MG/DL (60-100); POTASSIUM SERUM 3.9 MMOL/L (3.5-5.1); SODIUM LEVEL 139 MMOL/L (136-145); TOTAL PROTEIN 6.8 G/DL (5.7-8.2)
[2023-08-24 20:34] LABS: FREE T4 1.06 NG/DL (0.89-1.76); THYROID STIMULATING HORMONE 1.418 uIU/ML (0.55-4.78)
[2023-08-24] MEDS ORDERED: ISOVUE-370 76% 100ML VIAL As Ordered ONE (21:40)
[2023-08-24] MEDS ORDERED: AZITHROMYCIN INJ 500 MG, VIAL MATE ADAPTER 1 EACH in NS 250 ML IV ONE (23:40)
[2023-08-24] MEDS ORDERED: cefTRIAXone SOD 1 GM in D5W MINI-BAG PLUS 50 ML IV ONE (23:40)
[2023-08-25] MEDS ORDERED: AZIT-12 PO (01:07)
[2023-08-25] MEDS ORDERED: AMOX500C PO (01:07)
[2023-08-25 01:25] VITALS: BP 128/85; TEMP 98.1; O2SAT 97
== END 2023-08-25 01:58 | disposition home or self-care (01) ==
LOC: M ED 18:10
DX: J18.9 Pneumonia, unspecified organism (principal); Z88.5 Allergy status to narcotic agent
CPT/HCPCS: 71045; 71275; 80048; 80076; 81001; 82550; 82553; 83605; 83880; 84439; 84443; 84703; 85025; 85610; 85730; 87040; 87086; 87486; 87581; 87633; 87798; 93005; 96365; 96367; 99285; J0456; J0696; Q9967

== ENCOUNTER 2023-10-05 17:28 | Emergency (ER) | payer OTHER ==
[~2023-10-05] VITALS: Ht 167.6 cm; Wt 104.4 kg
[~2023-10-05 17:28] MED LIST changes: +AMOX500C PO; +AZIT-12 PO; +ETON1VAG; +VENL75CA47
[2023-10-05 17:29] VITALS: BP 158/106; TEMP 98.8; O2SAT 98
[2023-10-05] MEDS ORDERED: PHEN-935 PO (17:36)
[2023-10-05] MEDS ORDERED: AMOXICILLIN 500 MG CAP PO ONE (20:00)
[2023-10-05] MEDS ORDERED: IBUPROFEN 600MG TAB PO ONE (20:00)
[2023-10-05] MEDS ORDERED: FLON1SPR NARES (20:05)
[2023-10-05] MEDS ORDERED: AMOX500C PO (20:05)
== END 2023-10-05 20:19 | disposition home or self-care (01) ==
LOC: M ED 17:28
DX: H65.01 Acute serous otitis media, right ear (principal); M54.9 Dorsalgia, unspecified; Z88.5 Allergy status to narcotic agent

== ENCOUNTER → 2023-10-29 | Outpatient (REF) ==
[~2023-10-29] MED LIST changes: +FLON1SPR NARES; +PHEN-935 PO
== END ==
LOC: M EMP 10:48
PROVIDERS: ATTEND Family Medicine
DX: Z20.822 Contact with and (suspected) exposure to COVID-19 (principal)

== ENCOUNTER → 2023-11-19 | Outpatient (REF) | payer OTHER ==
[2023-11-19 11:02] LABS: APPEARANCE, URINE HAZY (CLEAR); BACTERIA, URINE AUTO NEGATIVE (NEGATIVE); BILIRUBIN, URINE AUTO NEGATIVE (NEGATIVE); BLOOD, URINE BLOOD NEGATIVE (NEGATIVE); COLOR, URINE YELLOW (YELLOW); GLUCOSE, URINE (UA) AUTO NEGATIVE (NEGATIVE); KETONE, URINE AUTO NEGATIVE (NEGATIVE); LEUKOCYTE ESTERASE, URINE AUTO NEGATIVE (NEGATIVE); MUCUS, URINE SMALL (NEGATIVE); NITRITE, URINE AUTO NEGATIVE (NEGATIVE); PROTEIN, URINE AUTO NEGATIVE (NEGATIVE); RBC, URINE AUTO 1 /HPF (0-3); SPECIFIC GRAVITY URINE AUTO 1.024 (1.002-1.035); SQUAMOUS EPITHELIAL CELL UR AU 12 /HPF (0-6); UROBILINOGEN, URINE AUTO 0.2 mg/dL (0.0-2.0); WBC, URINE AUTO 1 /HPF (0-3)
[2023-11-19 12:12] LABS: Trichomonas vaginalis (AMP) NOT DETECTED (NEGATIVE)
[2023-11-19 12:36] LABS: GC DNA AMPLIFICATION NEGATIVE (NEGATIVE)
== END ==
LOC: M SFHCPLAZ 09:09
PROVIDERS: ATTEND Family Medicine
DX: R10.9 Unspecified abdominal pain (principal); Z11.9 Encounter for screening for infectious and parasitic diseases, unspecified

== ENCOUNTER → 2023-11-24 | Outpatient (REF) | payer OTHER | LOC: M SFHCPLAZ 11:05 | PROVIDERS: ATTEND Student in an Organized Health Care Education/Training Program | DX: J02.9 Acute pharyngitis, unspecified (principal) ==

== ENCOUNTER → 2023-12-22 | Outpatient (CLI) | payer OTHER | LOC: M PAIN 08:00 | PROVIDERS: ATTEND Nurse Practitioner Family | DX: M51.16 Intervertebral disc disorders with radiculopathy, lumbar region (principal); G89.29 Other chronic pain; F32.A Depression, unspecified; Z79.899 Other long term (current) drug therapy; Z88.5 Allergy status to narcotic agent ==

== ENCOUNTER → 2023-12-24 | Outpatient (REF) ==
[2023-12-24 16:18] LABS: RSV AMPLIFICATION NEGATIVE (NEGATIVE)
== END ==
LOC: M EMP 15:02
PROVIDERS: ATTEND Family Medicine
DX: Z11.52 Encounter for screening for COVID-19 (principal)

== ENCOUNTER → 2024-02-29 | Outpatient (CLI) | payer OTHER | LOC: M PAIN 10:45 | PROVIDERS: ATTEND Nurse Practitioner Family | DX: M51.16 Intervertebral disc disorders with radiculopathy, lumbar region (principal); Z79.1 Long term (current) use of non-steroidal anti-inflammatories (NSAID); Z79.3 Long term (current) use of hormonal contraceptives; Z79.899 Other long term (current) drug therapy; Z88.2 Allergy status to sulfonamides ==

== ENCOUNTER → 2024-04-07 | Outpatient (CLI) | payer OTHER | LOC: M PLAIMG 09:25 | PROVIDERS: ATTEND Nurse Practitioner Family | DX: M51.16 Intervertebral disc disorders with radiculopathy, lumbar region (principal) ==

== ENCOUNTER → 2024-04-19 | Outpatient (REF) | LOC: M EMP 13:28 | PROVIDERS: ATTEND Family Medicine | DX: R09.89 Other specified symptoms and signs involving the circulatory and respiratory systems (principal) ==

== ENCOUNTER → 2024-04-25 | Outpatient (CLI) | payer OTHER | LOC: M PAIN 10:45 | PROVIDERS: ATTEND Nurse Practitioner Family | DX: M51.16 Intervertebral disc disorders with radiculopathy, lumbar region (principal); G89.29 Other chronic pain; F32.A Depression, unspecified; Z79.899 Other long term (current) drug therapy; Z88.5 Allergy status to narcotic agent ==

== ENCOUNTER → 2024-06-21 | Outpatient (CLI) | payer OTHER | LOC: M PAIN 08:15 | PROVIDERS: ATTEND Anesthesiology | DX: M51.16 Intervertebral disc disorders with radiculopathy, lumbar region (principal); G89.29 Other chronic pain; F32.A Depression, unspecified; Z79.899 Other long term (current) drug therapy; Z88.5 Allergy status to narcotic agent ==

== ENCOUNTER → 2024-06-21 | Outpatient (CLI) | payer OTHER ==
[2024-06-21 13:19] LABS: HEMATOCRIT 41.6 % (36.0-47.0); HEMOGLOBIN 13.9 g/dl (12.0-15.5); MEAN CORPUSCULAR HEMOGLOBIN 29.4 pg (27.0-33.0); MEAN CORPUSCULAR HGB CONC 33.4 g/dl (32.0-36.5); MEAN CORPUSCULAR VOLUME 88.1 fl (80.0-96.0); PLATELET COUNT, AUTOMATED 260 10^3/uL (150-450); RED BLOOD COUNT 4.72 10^6/uL (4.00-5.40); WHITE BLOOD COUNT 12.2 10^3/uL (4.0-10.0)
[2024-06-21 13:54] LABS: CREATININE, URINE 132.9 MG/DL; MAU/CREAT RATIO 2.2 MCG/MG (0.0-30.0)
[2024-06-21 13:57] LABS: FERRITIN 28.9 NG/ML (7.3-270.7); FREE T4 1.06 NG/DL (0.89-1.76); THYROID STIMULATING HORMONE 3.238 uIU/ML (0.55-4.78)
[2024-06-21 13:59] LABS: ALBUMIN 3.4 G/DL (3.2-5.2); ALKALINE PHOSPHATASE 124 U/L (46-116); ALT/SGPT 19 U/L (7.0-40); AST/SGOT 11 U/L (<34); BILIRUBIN,TOTAL 0.3 MG/DL (0.3-1.2); BLOOD UREA NITROGEN 15 MG/DL (9-23); CALCIUM LEVEL 9.1 MG/DL (8.5-10.1); CARBON DIOXIDE LEVEL 27 MMOL/L (20-31); CHLORIDE LEVEL 108 MMOL/L (98-107); CREATININE FOR GFR 0.69 MG/DL (0.55-1.30); GLOMERULAR FILTRATION RATE > 60.0 (>60); GLUCOSE, FASTING 102 MG/DL (60-100); POTASSIUM SERUM 4.5 MMOL/L (3.5-5.1); SODIUM LEVEL 141 MMOL/L (136-145); TOTAL PROTEIN 7.1 G/DL (5.7-8.2)
[2024-06-21 19:26] LABS: BASO # 0.1 10^3/uL (0.0-0.2); BASO % 0.6 % (0.0-1.0); EOS # 0.1 10^3/uL (0.0-0.5); EOS % 0.7 % (0.0-3.0); LYMPH # 3.5 10^3/uL (1.5-5.0); LYMPH % 28.1 % (24.0-44.0); MONO # 0.6 10^3/uL (0.0-0.8); MONO % 4.7 % (2.0-8.0); NEUTROPHILS # 8.2 10^3/uL (1.5-8.5); NEUTROPHILS % 65.6 % (36.0-66.0)
== END ==
LOC: M PLALAB 11:40
PROVIDERS: ATTEND Family Medicine
DX: I10 Essential (primary) hypertension (principal); R23.2 Flushing; D72.829 Elevated white blood cell count, unspecified

== ENCOUNTER → 2024-07-07 | Outpatient (CLI) | payer OTHER | LOC: M RAD 12:51 | PROVIDERS: ATTEND Family Medicine | DX: R51.9 Headache, unspecified (principal) ==

== ENCOUNTER → 2024-07-22 | Outpatient (CLI) | payer OTHER | LOC: M PAIN 10:45 | PROVIDERS: ATTEND Nurse Practitioner Family | DX: M51.16 Intervertebral disc disorders with radiculopathy, lumbar region (principal); G89.29 Other chronic pain; F32.A Depression, unspecified; Z79.899 Other long term (current) drug therapy; Z88.5 Allergy status to narcotic agent ==

== ENCOUNTER → 2024-07-26 | Outpatient (CLI) | payer OTHER ==
[~2024-07-26] MED LIST changes: +ISOVUE-M 300 61% 15ML VIAL As Ordered ONE; +LIDOCAINE 1% SDV 30ML VIAL As Ordered ONE; +NORCO, ANEXSIA 5/325MG TABLET (HYDROcodone/ACETAMINOPHEN) As Ordered ONE; +dexAMETHasone 10MG/1ML VIAL PRES.FREE As Ordered ONE; +diazePAM 5MG TABLET As Ordered ONE
== END ==
LOC: M PAIN 08:15
PROVIDERS: ATTEND Anesthesiology
DX: M51.16 Intervertebral disc disorders with radiculopathy, lumbar region (principal); G89.29 Other chronic pain; F32.A Depression, unspecified; Z79.899 Other long term (current) drug therapy; Z88.5 Allergy status to narcotic agent
CPT/HCPCS: 62323; J1100; Q9967

== ENCOUNTER → 2024-07-28 | Outpatient (REF) ==
[~2024-07-28] MED LIST changes: -ISOVUE-M 300 61% 15ML VIAL As Ordered ONE; -LIDOCAINE 1% SDV 30ML VIAL As Ordered ONE; -NORCO, ANEXSIA 5/325MG TABLET (HYDROcodone/ACETAMINOPHEN) As Ordered ONE; -dexAMETHasone 10MG/1ML VIAL PRES.FREE As Ordered ONE; -diazePAM 5MG TABLET As Ordered ONE
== END ==
LOC: M EMP 10:32
PROVIDERS: ATTEND Family Medicine
DX: Z20.822 Contact with and (suspected) exposure to COVID-19 (principal)

== ENCOUNTER → 2025-07-14 | Outpatient (REF) | payer OTHER ==
[2025-07-15 16:37] LABS: Trichomonas vaginalis (AMP) NOT DETECTED (NEGATIVE)
[2025-07-15 17:01] LABS: GC DNA AMPLIFICATION NEGATIVE (NEGATIVE)
== END ==
LOC: M LAB REF 15:02
PROVIDERS: ATTEND Physician Assistant
DX: R10.30 Lower abdominal pain, unspecified (principal)